=== PATIENT | female | born 1955 | race Caucasian/White ===

== ENCOUNTER 2019-05-05 20:48 | Emergency (ER) | payer OTHER ==
[2019-05-06] MEDS: HYDROCODONE/APAP (10/325) TAB PO ×2 (00:19→02:39)
== END 2019-05-06 02:54 | disposition home or self-care (01) ==
LOC: FTE 05-06 02:54
DX: S82.839A Other fracture of upper and lower end of unspecified fibula, initial encounter for closed fracture (principal); S82.399A Other fracture of lower end of unspecified tibia, initial encounter for closed fracture; W01.10XA Fall on same level from slipping, tripping and stumbling with subsequent striking against unspecified object, initial encounter; Y92.9 Unspecified place or not applicable
CPT/HCPCS: 29515; 73590; 73610; 73630-LT; 99283-25